=== PATIENT | male | born 1995 | race Caucasian/White ===

== ENCOUNTER 2016-07-05 12:08 | Emergency (ER) | payer OTHER ==
[~2016-07-05 12:08] MED LIST: ACCUTANE20 MG PO; ALBUTEROL17 GM; FLOVENT HFA12 GM; KEFLEX500 MG PO; MULTIVITAMIN1 TAB PO; PROCTOFOAM-HC10 GM PR; ZYRTEC10 M; ZYRTEC10 M1 PO
[2016-07-05] MEDS ORDERED: LATUDA40 M1 PO (14:09)
== END 2016-07-05 15:00 ==
LOC: EDMED 12:08
DX: S06.0X0A Concussion without loss of consciousness, initial encounter (principal); F17.210 Nicotine dependence, cigarettes, uncomplicated; V00.131A Fall from skateboard, initial encounter; Y93.51 Activity, roller skating (inline) and skateboarding; Y99.8 Other external cause status